=== PATIENT | male | born 1980 | race Caucasian/White ===

== ENCOUNTER 2017-06-12 23:18 | Emergency (ER) | payer MEDICAID, OTHER ==
[~2017-06-12] VITALS: Ht 177.8 cm; Wt 68.1 kg
[~2017-06-12 23:18] MED LIST: HYDR-565 PO; KETO10TA2 PO; MUPI15CR TP; ONDA8TAB9 PO; RANI-366 PO
[2017-06-12 23:30] VITALS: BP 113/75
[2017-06-13] MEDS ORDERED: CEPH500C5 PO (00:23)
[2017-06-13] MEDS ORDERED: SULF1TAB49 PO (00:23)
== END 2017-06-13 00:33 | disposition home or self-care (01) ==
LOC: ER 23:19
DX: S81.802A Unspecified open wound, left lower leg, initial encounter (principal); L03.90 Cellulitis, unspecified; F15.10 Other stimulant abuse, uncomplicated; Z98.890 Other specified postprocedural states; Z86.14 Personal history of Methicillin resistant Staphylococcus aureus infection; Z60.2 Problems related to living alone; Z79.899 Other long term (current) drug therapy; X58.XXXA Exposure to other specified factors, initial encounter; Y93.89 Activity, other specified; Y92.89 Other specified places as the place of occurrence of the external cause; Y99.8 Other external cause status
CPT/HCPCS: 99284

== ENCOUNTER 2017-07-06 10:16 | Emergency (ER) | payer OTHER ==
[~2017-07-06] VITALS: Ht 177.8 cm; Wt 57.0 kg
[2017-07-06 10:18] VITALS: BP 130/76
[2017-07-06] MEDS ORDERED: LIDOcaine 1.5% w/epinephrine 1:200,000 5ml ampul IJ ONE (10:45)
[2017-07-06] MEDS ORDERED: TETanus/Pertussis (Acell)/Diphther VAC/PF (Tdap-Adult) 0.5ml syringe IM ONE (10:45)
[2017-07-06] MEDS ORDERED: CEPH-572 PO (10:47)
[2017-07-06] MEDS ORDERED: SULF1TAB49 PO (10:47)
== END 2017-07-06 11:45 | disposition home or self-care (01) ==
LOC: ER 10:17
DX: L02.416 Cutaneous abscess of left lower limb (principal); L03.116 Cellulitis of left lower limb; F15.10 Other stimulant abuse, uncomplicated; Z98.890 Other specified postprocedural states; Z86.14 Personal history of Methicillin resistant Staphylococcus aureus infection; Z79.899 Other long term (current) drug therapy; Z60.2 Problems related to living alone
CPT/HCPCS: 10060; 99283; A6449; J3490

== ENCOUNTER 2017-08-27 04:33 | Emergency (ER) | payer OTHER | END 2017-08-27 05:24 | disposition left against medical advice (07) | LOC: ER 04:33 | DX: K13.79 Other lesions of oral mucosa (principal); Z53.21 Procedure and treatment not carried out due to patient leaving prior to being seen by health care provider ==

== ENCOUNTER 2017-08-29 03:52 | Emergency (ER) | payer OTHER ==
[~2017-08-29] VITALS: Ht 177.8 cm; Wt 70.0 kg
[2017-08-29] MEDS ORDERED: diphenhydrAMINE 25 MG/10 ML UD oral solution PO ONE (04:10)
[2017-08-29] MEDS ORDERED: acyclovir 200 MG capsule PO ONE (04:30)
[2017-08-29] MEDS ORDERED: ACYC-202 PO (04:40)
[2017-08-29] MEDS ORDERED: DIPH-518 PO (04:41)
[2017-08-29 04:50] VITALS: BP 115/30
== END 2017-08-29 04:54 | disposition home or self-care (01) ==
LOC: ER 03:53
DX: K12.0 Recurrent oral aphthae (principal); F15.90 Other stimulant use, unspecified, uncomplicated; Z86.14 Personal history of Methicillin resistant Staphylococcus aureus infection; Z98.890 Other specified postprocedural states; Z79.899 Other long term (current) drug therapy; Z59.0 Homelessness; Z60.2 Problems related to living alone
CPT/HCPCS: 99283; Q0163

== ENCOUNTER 2017-08-29 07:11 | Emergency (ER) | payer OTHER ==
[~2017-08-29] VITALS: Ht 177.8 cm; Wt 68.0 kg
[~2017-08-29 07:11] MED LIST changes: +ACYC-202 PO; +DIPH-518 PO
[2017-08-29] MEDS ORDERED: LIDOcaine 1.5% w/epinephrine 1:200,000 5ml ampul IJ ONE (07:45)
[2017-08-29 09:42] VITALS: BP 107/69
== END 2017-08-29 09:55 | disposition home or self-care (01) ==
LOC: ER 07:11
DX: S01.111A Laceration without foreign body of right eyelid and periocular area, initial encounter (principal); F15.90 Other stimulant use, unspecified, uncomplicated; Z86.14 Personal history of Methicillin resistant Staphylococcus aureus infection; Z98.890 Other specified postprocedural states; Z79.899 Other long term (current) drug therapy; Z60.2 Problems related to living alone; Z59.0 Homelessness; W45.8XXA Other foreign body or object entering through skin, initial encounter; Y93.84 Activity, sleeping; Y92.89 Other specified places as the place of occurrence of the external cause; Y99.8 Other external cause status
CPT/HCPCS: 12011; 99283; J3490

== ENCOUNTER 2017-09-12 14:20 | Emergency (ER) | payer OTHER ==
[~2017-09-12] VITALS: Ht 177.8 cm; Wt 61.5 kg
[2017-09-12 14:32] VITALS: BP 115/79
[2017-09-12] MEDS ORDERED: LIDOcaine 1.5% w/epinephrine 1:200,000 5ml ampul IJ ONE (15:10)
[2017-09-12] MEDS ORDERED: SULF1TAB49 PO (15:38)
[2017-09-12] MEDS ORDERED: IBUP-1984 PO (15:40)
== END 2017-09-12 15:52 | disposition home or self-care (01) ==
LOC: ER 14:21
DX: L02.413 Cutaneous abscess of right upper limb (principal); F12.90 Cannabis use, unspecified, uncomplicated; F15.90 Other stimulant use, unspecified, uncomplicated; Z60.2 Problems related to living alone; Z59.0 Homelessness; Z98.890 Other specified postprocedural states; Z86.14 Personal history of Methicillin resistant Staphylococcus aureus infection; Z79.899 Other long term (current) drug therapy
CPT/HCPCS: 10060; 99283; A6255; A6449; J3490

== ENCOUNTER 2017-09-19 04:31 | Emergency (ER) | payer OTHER ==
[~2017-09-19] VITALS: Ht 177.8 cm; Wt 58.6 kg
[~2017-09-19 04:31] MED LIST changes: +IBUP-1984 PO; +SULF1TAB49 PO
[2017-09-19 04:55] VITALS: BP 120/77
[2017-09-19] MEDS ORDERED: sulfamethoxazole/trimethoprim DS (800/160mg) tablet PO ONE (05:15)
[2017-09-19] MEDS ORDERED: cephalexin 250mg capsule PO ONE (05:15)
[2017-09-19] MEDS ORDERED: DOXY100C43 PO (05:16)
[2017-09-19] MEDS ORDERED: IBUP-1986 PO (05:16)
== END 2017-09-19 05:36 | disposition home or self-care (01) ==
LOC: ER 04:32
DX: F12.90 Cannabis use, unspecified, uncomplicated (principal); F15.90 Other stimulant use, unspecified, uncomplicated; Z86.14 Personal history of Methicillin resistant Staphylococcus aureus infection; Z98.890 Other specified postprocedural states; Z79.899 Other long term (current) drug therapy; Z60.2 Problems related to living alone; Z59.0 Homelessness
CPT/HCPCS: 99283

== ENCOUNTER 2018-03-12 11:05 | Emergency (ER) | payer OTHER ==
[~2018-03-12] VITALS: Ht 177.8 cm; Wt 68.0 kg
[~2018-03-12 11:05] MED LIST changes: -ACYC-202 PO; +HYDR-4353 PO; -HYDR-565 PO; -IBUP-1984 PO; +IBUP-1986 PO; -SULF1TAB49 PO
[2018-03-12] MEDS ORDERED: pantoprazole 40 MG vial IV ONE (12:20)
[2018-03-12] MEDS ORDERED: normal saline 1000ML IV soln IVB ONE (12:20)
[2018-03-12] MEDS ORDERED: ondansetron/PF 4mg/2ml inj IV ONE (12:20)
[2018-03-12] MEDS ORDERED: famotidine/PF 10 mg/ml inj IV ONE (12:20)
[2018-03-12 13:00] LABS: BASOPHILS # (AUTO) 0.1 X10'3 (0-0.2); BASOPHILS % (AUTO) 0.6 % (0-1); EOSINOPHILS # (AUTO) 0.1 X10'3 (0-0.9); EOSINOPHILS % (AUTO) 0.6 % (0-6); HEMATOCRIT 41.3 % (42.0-52.0); HEMOGLOBIN 13.8 g/dl (14.0-17.9); LYMPHOCYTES # (AUTO) 0.4 X10'3 (1.1-4.8); LYMPHOCYTES % (AUTO) 4.4 % (21-51); MEAN CORPUSCULAR HEMOGLOBIN 29.9 PG (27.0-31.0); MEAN CORPUSCULAR HGB CONC 33.4 % (33.0-36.5); MEAN CORPUSCULAR VOLUME 89.3 FL (78-98); MEAN PLATELET VOLUME 8.2 FL (7.4-10.4); MONOCYTES # (AUTO) 0.4 X10'3 (0-0.9); MONOCYTES % (AUTO) 3.9 % (2-12); NEUTROPHILS # (AUTO) 8.6 X10'3 (1.8-7.7); NEUTROPHILS % (AUTO) 90.5 % (42-75); PLATELET COUNT 307 X10'3 (140-440); RED BLOOD COUNT 4.62 X10'6 (4.70-6.10); RED CELL DISTRIBUTION WIDTH 13.5 % (11.5-14.5); WHITE BLOOD COUNT 9.5 X10'3 (4.5-11.0)
[2018-03-12 13:19] LABS: ALANINE AMINOTRANSFERASE 67 U/L (12-78); ALBUMIN 3.7 G/DL (3.4-5.0); ALBUMIN/GLOBULIN RATIO 0.9 (1.1-1.5); ALKALINE PHOSPHATASE 88 IU/L (46-116); ANION GAP 10 (8-16); ASPARTATE AMINO TRANSFERASE 34 U/L (10-37); BILIRUBIN,TOTAL 0.5 MG/DL (0.1-1.0); BLOOD UREA NITROGEN 19 MG/DL (7-18); BUN/CREATININE RATIO 26.4 (5.4-32.0); CALCIUM 8.9 MG/DL (8.5-10.1); CHLORIDE 102 MMOL/L (99-107); CREATININE 0.72 MG/DL (0.60-1.10); GLUCOSE 122 MG/DL (70-104); POTASSIUM 3.5 MMOL/L (3.5-5.1); SODIUM 137 MMOL/L (135-145); TOTAL CARBON DIOXIDE 24.8 MMOL/L (24-32); TOTAL PROTEIN 7.6 G/DL (6.4-8.2); eGFR > 90 ML/MIN
[2018-03-12 13:20] LABS: ETHANOL < 0.010 GM/DL (0.0-0.010)
[2018-03-12 13:49] LABS: LIPASE 2599 U/L (73-393)
[2018-03-12 15:30] LABS: CLARITY,URINE SLIGHTLY CLOUDY (Clear); COLOR,URINE YELLOW (Yellow); GLUCOSE, URINE NEGATIVE (Neg); KETONES,URINE NEGATIVE (Neg); LEUKOCYTE ESTERASE ,URINE NEGATIVE (Neg); NITRITES, URINE NEGATIVE (Neg); OCCULT BLOOD,URINE NEGATIVE (Neg); PROTEIN,URINE NEGATIVE (Neg)
[2018-03-12] MEDS ORDERED: OMEP20CA10 PO (15:32)
[2018-03-12 15:36] LABS: URINE AMPHETAMINE SCREEN POSITIVE (Neg); URINE BARBITUATE SCREEN NEGATIVE (Neg); URINE BENZODIAZEPINES SCREEN NEGATIVE (Neg); URINE CANNABINOID SCREEN POSITIVE (Neg); URINE COCAINE SCREEN NEGATIVE (Neg); URINE METHADONE SCREEN NEGATIVE (Neg); URINE OPIATE SCREEN NEGATIVE (Neg); URINE PHENCYCLIDINE SCREEN NEGATIVE (Neg)
[2018-03-12 15:58] LABS: UA COLLECTION TYPE CLN CATCH MIDSTREAM
[2018-03-12 15:59] LABS: AMORPHOUS PHOSPHATES 2+; BACTERIA,URINE NONE SEEN /HPF (Neg); MUCUS STRANDS FEW /LPF (Neg); RBC,URINE NONE SEEN /HPF (0-2); SQUAMOUS EPITHELIAL CELL,UR NONE SEEN /LPF (FEW); WBC,URINE NONE SEEN /HPF (0-4)
[2018-03-12 16:00] VITALS: BP 119/66
== END 2018-03-12 16:02 | disposition home or self-care (01) ==
LOC: ER 11:06
DX: K85.90 Acute pancreatitis without necrosis or infection, unspecified (principal); R10.13 Epigastric pain; F12.90 Cannabis use, unspecified, uncomplicated; F15.90 Other stimulant use, unspecified, uncomplicated; Z86.14 Personal history of Methicillin resistant Staphylococcus aureus infection; Z98.890 Other specified postprocedural states; Z79.899 Other long term (current) drug therapy; Z59.0 Homelessness; Z60.2 Problems related to living alone
CPT/HCPCS: 36415; 71045; 74176; 80053; 80305; 80320; 81001; 83690; 85025; 96374; 96375; 99284; C9113; J2405; J3490; J7030

== ENCOUNTER 2019-01-01 21:25 | Emergency (ER) | payer OTHER ==
[~2019-01-01] VITALS: Ht 177.8 cm; Wt 65.9 kg
[~2019-01-01 21:25] MED LIST changes: +OMEP20CA11 PO
[2019-01-01 21:34] VITALS: BP 114/44
== END 2019-01-01 23:02 | disposition left against medical advice (07) ==
LOC: ER 21:26
DX: Z00.00 Encounter for general adult medical examination without abnormal findings (principal); F12.90 Cannabis use, unspecified, uncomplicated; F15.90 Other stimulant use, unspecified, uncomplicated; F10.99 Alcohol use, unspecified with unspecified alcohol-induced disorder; Z86.14 Personal history of Methicillin resistant Staphylococcus aureus infection; Z98.890 Other specified postprocedural states; Z59.0 Homelessness; Z60.2 Problems related to living alone; Z79.899 Other long term (current) drug therapy; Y90.9 Presence of alcohol in blood, level not specified
CPT/HCPCS: 99281

== ENCOUNTER 2022-09-17 00:58 | Emergency (ER) | payer SELFPAY ==
[~2022-09-17] VITALS: Ht 177.8 cm; Wt 53.6 kg
[~2022-09-17 00:58] MED LIST changes: -OMEP20CA11 PO; +OMEP20CA15 PO
[2022-09-17 01:06] VITALS: BP 117/84; PULSE 77; RESP 16; TEMP 98; O2SAT 99
[2022-09-17] MEDS ORDERED: ondansetron 4mg rapidly disintigrating tab PO ONE (01:35)
[2022-09-17] MEDS ORDERED: clindamycin 150mg capsule PO ONE (01:35)
[2022-09-17] MEDS ORDERED: famotidine 20mg tablet PO ONE (01:35)
[2022-09-17] MEDS ORDERED: ONDA8TAB13 PO (01:39)
[2022-09-17] MEDS ORDERED: CLIN-214 PO (01:39)
== END 2022-09-17 02:00 | disposition home or self-care (01) ==
LOC: ER 01:00
DX: R11.0 Nausea (principal); L97.319 Non-pressure chronic ulcer of right ankle with unspecified severity; F12.90 Cannabis use, unspecified, uncomplicated; F15.20 Other stimulant dependence, uncomplicated; Z79.899 Other long term (current) drug therapy; Z79.1 Long term (current) use of non-steroidal anti-inflammatories (NSAID); Z79.2 Long term (current) use of antibiotics
CPT/HCPCS: 99284

== ENCOUNTER 2022-10-27 04:40 | Emergency (ER) | payer MEDICAID ==
[~2022-10-27] VITALS: Ht 177.8 cm; Wt 68.2 kg
[~2022-10-27 04:40] MED LIST changes: +CLIN-214 PO; +ONDA8TAB13 PO
[2022-10-27 04:52] VITALS: TEMP 98
[2022-10-27 06:34] VITALS: BP 128/76; PULSE 83; RESP 16; O2SAT 98
[2022-10-27] MEDS ORDERED: ondansetron 4mg rapidly disintigrating tab PO ONE (06:40)
[2022-10-27] MEDS ORDERED: normal saline 1000ml 1,000 ML IV ONE (07:20)
[2022-10-27 08:13] LABS: BASOPHILS % (AUTO) 0.3 % (0-1); EOSINOPHILS % (AUTO) 0.4 % (0-6); HEMATOCRIT 34.8 % (42.0-52.0); HEMOGLOBIN 11.9 g/dl (14.0-17.9); LYMPHOCYTES # (AUTO) 0.7 X10'3 (1.1-4.8); LYMPHOCYTES % (AUTO) 12.4 % (21-51); MEAN CORPUSCULAR HEMOGLOBIN 30.2 PG (27.0-31.0); MEAN CORPUSCULAR HGB CONC 34.3 g/dL (33.0-36.5); MEAN CORPUSCULAR VOLUME 88.2 FL (78-98); MEAN PLATELET VOLUME 7.4 FL (7.4-10.4); MONOCYTES # (AUTO) 0.4 X10'3 (0-0.9); MONOCYTES % (AUTO) 6.1 % (2-12); NEUTROPHILS # (AUTO) 4.7 X10'3 (1.8-7.7); NEUTROPHILS % (AUTO) 80.8 % (42-75); PLATELET COUNT 349 X10'3 (140-440); RED BLOOD COUNT 3.94 X10'6 (4.70-6.10); WHITE BLOOD COUNT 5.8 X10'3 (4.5-11.0)
[2022-10-27 08:23] LABS: ALANINE AMINOTRANSFERASE 61 U/L (12-78); ALBUMIN 3.5 G/DL (3.4-5.0); ALBUMIN/GLOBULIN RATIO 0.9 (1.1-1.5); ALKALINE PHOSPHATASE 100 IU/L (46-116); ANION GAP 3 (8-16); ASPARTATE AMINO TRANSFERASE 47 U/L (10-37); BILIRUBIN,TOTAL 0.3 MG/DL (0.1-1.0); BLOOD UREA NITROGEN 16 MG/DL (7-18); CHLORIDE 103 MMOL/L (99-107); GLUCOSE 114 MG/DL (70-104); LIPASE 93 U/L (73-393); POTASSIUM 3.4 MMOL/L (3.5-5.1); SODIUM 136 MMOL/L (135-145); TOTAL CARBON DIOXIDE 29.6 MMOL/L (24-32); TOTAL PROTEIN 7.4 G/DL (6.4-8.2); eCRCL 116 ML/MIN; eGFR > 90 ML/MIN
--- NOTE | 2022-10-27 08:51 | NUR ---
Pt woke up from sleeping and became very angry and agitated. Security was called and the patient had to be taken out.
[2022-10-27 09:08] LABS: CALCIUM 9.1 MG/DL (8.5-10.1)
== END 2022-10-27 08:55 | disposition home or self-care (01) ==
LOC: ER 04:40
DX: K29.70 Gastritis, unspecified, without bleeding (principal)
CPT/HCPCS: 36415; 80053; 83690; 85025; 96360; 99283; J7030

== ENCOUNTER 2024-09-03 14:16 | Emergency (ER) | payer SELFPAY ==
[~2024-09-03] VITALS: Ht 175.3 cm; Wt 68.2 kg
[~2024-09-03 14:16] MED LIST changes: +ONDA-245 PO; -ONDA8TAB13 PO
--- NOTE | 2024-09-03 14:33 | Physician Documentation ---
History of Present Illness ~ Chief Complaint: Overdose Stated Complaint: OD Time Seen by MD: 14:26 Primary Medical Doctor: No PCP Mode of Arrival: EMS HPI This 44-year-old male presents to the ED with a suspected fentanyl or opioid overdose. According to ER nurse as the patient does not have any recollection of previous events: He was found down by a bystander CPR in progress along with [id number] resuscitation until EMS arrived. Patient received 2 mg intranasal Narcan. Patient had agonal breathing at this time IV was placed along with a bag-valve mass. 2 mg of IV Narcan were infused with a positive result and patient came to alert and oriented normal respirations. Was a proximally 20 minutes prior to arrival to the ED. this is because the patient had warrants for his arrest and law enforcement needed to determine whether group home was appropriate or the hospital for medical treatment Day of Ingestion: Sep 03, 2024 Medication Reconciliation Allergies: Coded Allergies: No Known Allergies (Unverified , 08/29/17) Scheduled Clindamycin HCl (Clindamycin HCl CAPSULE), 1 CAP PO TID Diphenhydramine HCl (Benadryl Allergy), 5 ML PO Q6H PRN Hydrocodone Bit/Acetaminophen ([place] 10-325 Tablet), 1 TAB PO Q6H Ibuprofen (Ibuprofen), 1 TAB PO Q8H Mupirocin Calcium (Bactroban), 1 APPLIC TP TID Omeprazole (Omeprazole), 2 CAP PO BIDAC Ondansetron 8mg ODT (Ondansetron Odt), 1 TAB PO Q6H Ranitidine Hcl (Zantac), 150 MG PO DAILY Scheduled PRN Ketorolac Tromethamine (Ketorolac Tromethamine), 1 TAB PO Q8HPRN PRN for pain Ondansetron (Zofran Odt), 8 MG PO QID PRN for nausea/vomiting Past Medical History Past Medical History: MRSA Abscess Past Surgical History: noncontributory, orthopedic surgeries Alcohol Use: Occasionally Drug Use: marijuana, methamphetamine Lives with: Alone Lives In: Homeless, Other Review of Systems All Other Systems at this time: Reviewed and Negative ROS As stated above in the HPI, otherwise all systems are reviewed and negative. Physical Exam Vital Signs: Temperature: 96.9, Source: Temporal, Heart Rate: 103, Respiratory Rate: 16, BP: 108/71, Pulse Oximetry: 98, Weight: 68.180 Oxygen Flow Rate: 0 Physical Exam General: Alert, no apparent distress. Respiratory: Lungs clear, no respiratory distress. Cardiovascular: Regular rate and rhythm, no murmurs. Neurologic: Oriented x4. Psychiatric: Normal mood and affect. Skin: Normal color, warm and dry. No edema, no ecchymosis. Progress Results/Orders Results/Orders Medications Received in ER Medications (Trade) Dose Ordered Sig/Mikki Route PRN Reason Start Time Stop Time Status Last Admin Dose Admin (K-DUR tablet) 40 meq ONCE STAT PO 09/03/24 16:23 09/03/24 16:27 DC 09/03/24 16:44 40 MEQ Potassium Chloride 40 meq/ Sodium Chloride 520 ml @ 130 mls/hr ONCE ONCE IV 09/03/24 16:30 09/03/24 20:29 09/03/24 16:47 130 MLS/HR Sodium Chloride 1,000 ml @ 1,000 mls/hr ONCE ONCE IV 09/03/24 16:45 09/03/24 17:44 DC 09/03/24 16:52 1,000 MLS/HR Vital Signs 09/03/24 09/03/24 09/03/24 09/03/24 14:19 14:24 14:24 16:38 Temp 96.9 96.9 96.9 Pulse 103 95 57 Resp 18 14 16 9 B/P (MAP) 108/71 101/71 (81) 100/69 (79) Pulse Ox 98 98 99 O2 Flow Rate 0 0 0 09/03/24 18:30 Temp 96.9 Pulse 77 Resp 14 B/P (MAP) 112/74 (87) Pulse Ox 98 O2 Flow Rate 0 Laboratory Tests Test 09/03/24 15:01 White Blood Count 3.6 L Red Blood Count 4.78 Hemoglobin 14.2 Hematocrit 40.7 L Mean Corpuscular Volume 85.2 Mean Corpuscular Hemoglobin 29.7 Mean Corpuscular Hemoglobin Concent 34.9 Red Cell Distribution Width 13.4 Platelet Count 364 Mean Platelet Volume 8.8 Neutrophils (%) (Auto) 56.4 Lymphocytes (%) (Auto) 32.8 Monocytes (%) (Auto) 8.5 Eosinophils (%) (Auto) 1.1 Basophils (%) (Auto) 1.2 H Neutrophils # (Auto) 2.0 Lymphocytes # (Auto) 1.2 Monocytes # (Auto) 0.3 Eosinophils # (Auto) 0.0 Basophils # (Auto) 0.0 CBC Comment Sodium Level 139 Potassium Level 2.3 *L Chloride Level 101 Carbon Dioxide Level 22.1 L Anion Gap 16 Blood Urea Nitrogen 17 Creatinine 0.93 Estimated GFR/1.73 m2 88 BUN/Creatinine Ratio 18.3 Glucose Level 151 H Calcium Level 9.0 Magnesium Level 2.2 Troponin I High Sensitivity 7 Pro-B-Type Natriuretic Peptide 46 Albumin 3.5 Chemistry Comments Medical Decision Making Findings This patient presented initially for fentanyl overdose however he is maintain his airway throughout his stay in the ED. his laboratory values came back mostly unremarkable except for hypokalemia at 2.3. I have been replacing his electrolyte via IV during his stay in the ED. we will continue to be monitored to as he receives his infusion. Upon completion of his potassium infusion he will be discharged as long as he continues to maintain his airway and is a safe discharge Differential Dx:Considerations: Include: Alcohol abuse, Anxiety, Bipolar disorder, Conversion disorder, Delirium, Depression, Drug Overdose-Accidental, Drug Overdose-Intentional, Encephalopathy, Hallucinations, Homicidal, Liver failure, Panic disorder, Personality disorder, Renal failure, Respiratory failur e, Schizophrenia, Substance abuse, Suicidal attempt, Suidical gesture, Other Departure Disposition: 01 HOME / SELF CARE / HOMELESS Impression: Primary Impression: Hypokalemia Additional Impression: Poisoning by opiate or related narcotic Discharge Instructions: Opioid Overdose Referrals: NO PRIMARY CARE PROVIDER (PCP) Prescriptions Potassium Chloride* (K-Dur*) 20 Meq Tab.prt.sr 1 TAB PO Q12H for 30 Days, #6 TAB Prov: NAT CARLOS MD 09/03/24 Education Educated: Patient Educated regarding: diagnosis Signature Scribe Signature: Attestation: Scribed for Jonas Zayas Leakage Tester by Jonas Vogel NP . 09/03/24 16:24 JONAS ZAYAS NP Sep 03, 2024 14:33 NAT CARLOS MD Sep 03, 2024 20:21
--- NOTE | 2024-09-03 14:34 | ELECTROCARDIOGRAPH REPORT ---
[facility] Test Date: 2024-09-03 Test Time: 14:32:24 Pat Name: LUCIA DICKSON Department: [facility] Patient ID: [id number] Room: Gender: M Special Education Instructor: : 1980 Requested By: GABRIELA ZAYAS Order Number: [id number] Reading MD: Measurements Intervals Cass Rate: 92 P: 79 ID: [id number] QRS: 84 QRSD: 97 T: 56 QT: 400 QTc: 495 Interpretive Statements Sinus rhythm Borderline prolonged QT interval Please click the below link to view image of tracing.
--- NOTE | 2024-09-03 15:08 | RADIOLOGY REPORT ---
DI CHEST,SINGLE VIEW, HISTORY: CP COMPARISON: None None TECHNICAL DATA: 1 view of the chest was obtained. FINDINGS: Lines and tubes: None Cardiomediastinal silhouette: normal Pulmonary vasculature: normal Lung expansion: normal Lung airspace: normal Lung interstitium: normal Pleura: normal Pneumothorax: no Bones: Unremarkable Other: no IMPRESSION: No acute intrathoracic abnormality.
[2024-09-03 15:16] LABS: MEAN PLATELET VOLUME 8.8 FL (7.4-10.4); RED CELL DISTRIBUTION WIDTH 13.4 % (11.5-14.5)
[2024-09-03 15:37] LABS: CREATININE 0.93 MG/DL (0.60-1.10); PRO BRAIN NATRIURETIC PEPTIDE 46 PG/ML (0-125); TOTAL CARBON DIOXIDE 22.1 MMOL/L (24-32); eCRCL 98 ML/MIN; eGFR 88 ML/MIN
[2024-09-03] MEDS ORDERED: potassium Cl 40MEQ/1/2NS 520ml 520 ML IV PRN (15:45)
[2024-09-03] MEDS ORDERED: potassium Cl 20 mEq SR tablet PO PRN ×2 (15:45)
[2024-09-03] MEDS ORDERED: magnesium Cl slow-release 64mg tablet PO PRN (15:45)
[2024-09-03] MEDS ORDERED: magnesium sulf-water 2g/50mL 50 ML IV PRN (15:45)
[2024-09-03] MEDS ORDERED: magnesium sulf-water 4G/100mL 100 ML IV PRN (15:45)
[2024-09-03] MEDS ORDERED: Potassium Cl inj 40 MEQ in normal saline 250ml IV soln 250 ML IV ONE (16:15)
[2024-09-03] MEDS: potassium Cl 20 mEq SR tablet PO STA (16:44)
[2024-09-03] MEDS: Potassium Cl 40 MEQ in sodium chloride 0.45% 500 ML IV ONE (16:47)
[2024-09-03] MEDS: normal saline 1000ml 1,000 ML IV ONE (16:52)
[2024-09-03] MEDS ORDERED: POTA-207 PO (20:21)
[2024-09-03 20:57] VITALS: BP 119/81; PULSE 68; RESP 14; TEMP 97.2; O2SAT 100
[2024-09-04] MEDS ORDERED: K and/or MAG REPLACEMENT MC SCH (08:00)
== END 2024-09-03 21:05 | disposition home or self-care (01) ==
LOC: ER 14:16
DX: E87.6 Hypokalemia (principal); T40.411A Poisoning by fentanyl or fentanyl analogs, accidental (unintentional), initial encounter; F12.90 Cannabis use, unspecified, uncomplicated; F15.90 Other stimulant use, unspecified, uncomplicated; Z79.899 Other long term (current) drug therapy; Z59.00 Homelessness unspecified; Z72.89 Other problems related to lifestyle; Z60.2 Problems related to living alone; Y92.89 Other specified places as the place of occurrence of the external cause
CPT/HCPCS: 36415; 71045; 80048; 83735; 83880; 84484; 85025; 93005; 96365; 99285; J3480; J3490; J7030